=== PATIENT | male | born 1950 | race Two or more races ===

== ENCOUNTER → 2020-07-11 | Outpatient (CLI) | payer OTHER ==
[~2020-07-11] VITALS: Ht 175.3 cm; Wt 81.6 kg
[~2020-07-11] MED LIST: ECOTRIN81 MG; LEXAPRO20 MG
== END | disposition home or self-care (01) ==
LOC: OFIC 805 09:00
PROVIDERS: ATTEND Otolaryngology
DX: H90.3 Sensorineural hearing loss, bilateral (principal)

== ENCOUNTER → 2020-09-26 | Outpatient (CLI) | payer OTHER | END | disposition home or self-care (01) | LOC: OFIC 805 10:30 | PROVIDERS: ATTEND Otolaryngology | DX: H90.41 Sensorineural hearing loss, unilateral, right ear, with unrestricted hearing on the contralateral side (principal) ==

== ENCOUNTER 2024-06-02 02:51 | Emergency (ER) | payer OTHER ==
[~2024-06-02] VITALS: Ht 167.6 cm; Wt 81.6 kg
[2024-06-02] MEDS ORDERED: PROMETHAZINE HCL 50 MG/ML AMPUL IM STA (03:13)
[2024-06-02] MEDS ORDERED: MEPERIDINE HCL/PF 50 MG/ML VIAL IM STA (03:13)
[2024-06-02] MEDS ORDERED: 0.9 % SODIUM CHLORIDE 1,000 ML IV ONE (03:15)
[2024-06-02] MEDS ORDERED: PROMETHAZINE HCL 25 MG/ML AMPUL ONE (03:16)
[2024-06-02 04:03] LABS: HEMATOCRIT 42.7 % (39.0-48.0); HEMOGLOBIN 14.6 g/dL (13-16.00); MEAN CELL VOLUME 88.1 fL (80.0-100.00); MEAN CORPUSCULAR HEMOGLOBIN 30.2 pg (27.00-32.0); MEAN CORPUSCULAR HGB CONC 34.2 g/dl (32.0-36.0); PLATELET COUNT 176 K/uL (150-450); RED BLOOD COUNT 4.85 M/uL (4.00-6.00); RED CELL DISTRIBUTION WIDTH 15.2 % (11.5-14.5)
[2024-06-02 04:09] LABS: INR 0.96; PARTIAL THROMBOPLASTIN TIME 29.4 SECONDS (22.0-34.0); PROTHROMBIN TIME 10.1 SECONDS (9.0-11.5)
[2024-06-02] MEDS ORDERED: BARIUM SULFATE 450 ML ORAL.SUSP PO ONE (04:12)
[2024-06-02 04:15] LABS: BILIRUBIN TOTAL 1.31 mg/dL (0.3-1.2); BILIRUBIN,CONJUGATED 0.23 mg/dL (0.0-0.2); BILIRUBIN,UNCONJUGATED 1.08 mg/dL (0.0-0.6); CALCIUM 8.9 mg/dL (8.5-10.1); CREATININE SERUM 1.24 mg/dL (0.70-1.30); GFR 57.47; GLOBULINA 3.3 G/DL (2.4-3.5); POTASSIUM 4.59 mEq/L (3.5-5.1); TOTAL PROTEIN 7.3 gm/dL (6.4-8.2)
[2024-06-02 09:00] LABS: PH,URINE 5.5 (5.0-8.0); URINE APPEARANCE Clear; URINE BILIRRUBIN Negative (NEGATIVE); URINE BLOOD Negative; URINE COLOR Yellow; URINE GLUCOSE Negative (NEGATIVE); URINE KETONE Negative (NEGATIVE); URINE LEUKOCYTE Negative; URINE NITRATE Negative; URINE PROTEIN Negative (NEGATIVE); URINE UROBILINOGEN 0.2 E.U./dl
[2024-06-02 09:06] LABS: URINE BACTERIA 8.8 uL (0.0-1933); URINE WBC 3.7 uL (0.0-23.2)
== END 2024-06-02 15:48 | disposition home or self-care (01) ==
LOC: ER 02:52
PROVIDERS: General Practice
DX: R10.32 Left lower quadrant pain (principal); R10.9 Unspecified abdominal pain; Z88.0 Allergy status to penicillin
CPT/HCPCS: 36415; 74177; 96365; 96366; 96372; 99284; J2550; J3490; J7030; Q9965